=== PATIENT | male | born 1965 | race Caucasian/White ===

== ENCOUNTER 2022-08-20 09:46 | Outpatient (CLI) | payer OTHER | END 2022-08-20 10:00 | disposition home or self-care (01) | LOC: LAB 09:46 | PROVIDERS: ATTEND General Practice | DX: Z12.11 Encounter for screening for malignant neoplasm of colon (principal); Z12.5 Encounter for screening for malignant neoplasm of prostate; Z13.1 Encounter for screening for diabetes mellitus; Z00.00 Encounter for general adult medical examination without abnormal findings; Z13.220 Encounter for screening for lipoid disorders; E55.9 Vitamin D deficiency, unspecified ==

== ENCOUNTER → 2022-08-23 16:15 | Outpatient (CLI) | payer OTHER | END | disposition home or self-care (01) | LOC: LAB 16:15 | PROVIDERS: ATTEND General Practice | DX: Z12.11 Encounter for screening for malignant neoplasm of colon (principal) ==